=== PATIENT | male | born 1930 | race Caucasian/White ===

== ENCOUNTER 2016-10-28 20:55 | Inpatient (IN) | payer MEDICARE ==
[~2016-10-28] VITALS: Ht 162.6 cm; Wt 71.3 kg
[2016-10-28] MEDS ORDERED: ONDANSETRON PF 4 MG/2 ML VIAL. ONE (21:03)
[2016-10-28 21:15] LABS: BASO % 1 % (0-3); EOS % 2 % (0-3); HEMOGLOBIN 12.6 g/dL (13.0-17.5); LYMPH % 34 % (24-48); MEAN CORPUSCULAR HEMOGLOBIN 30 pg (25-35); MEAN CORPUSCULAR HGB CONC 34 g/dL (31-37); MEAN CORPUSCULAR VOLUME 88 fL (79-100); MONO % 14 % (0-9); NEUT % 50 % (31-73); PLATELET COUNT 185 x10^3/uL (140-400); RED BLOOD COUNT 4.23 x10^6/uL (4.30-5.70); RED CELL DISTRIBUTION WIDTH 15.3 % (11.5-14.5); WHITE BLOOD COUNT 8.9 x10^3/uL (4.0-11.0)
[2016-10-28] MEDS ORDERED: IPRATROPIUM BROMIDE 0.5 MG/2.5 ML NEBU. NEB ONE (21:15)
[2016-10-28] MEDS ORDERED: FAMOTIDINE 20 MG/2 ML VIAL IVP ONE (21:15)
[2016-10-28] MEDS ORDERED: ALBUTEROL SULFATE 2.5 MG/3 ML NEBU. NEB ONE (21:15)
[2016-10-28] MEDS ORDERED: ONDANSETRON PF 4 MG/2 ML VIAL. IV ONE (21:30)
[2016-10-28 21:32] LABS: CALCIUM 8.5 mg/dL (8.5-10.1); CREATININE 1.9 mg/dL (0.7-1.3); GFR 33.6
[2016-10-28 21:38] LABS: ALBUMIN 3.8 g/dL (3.4-5.0); ALBUMIN/GLOBULIN RATIO 1.2 (1.0-1.7); TOTAL BILIRUBIN 0.7 mg/dL (0.2-1.0); TOTAL PROTEIN 7.1 g/dL (6.4-8.2)
[2016-10-28 23:06] LABS: HCO3 ABG 23 mmol/L (21-28); PCO2 ABG 39 mmHg (35-46); PH ABG 7.38 (7.35-7.45); PO2 ABG 72 mmHg (65-108); SAT O2 ABG 93 % (92-99)
[2016-10-28] MEDS ORDERED: ONDANSETRON PF 4 MG/2 ML VIAL. IV PRN (23:45)
[2016-10-28] MEDS: CLINDAMYCIN 600MG PREMIX 50 ML IV SCH (23:46)
[2016-10-28] MEDS: IV NORMAL SALINE 1000ML BAG 1,000 ML IV SCH (23:46)
[2016-10-29 01:15] VITALS: BP 157/68
[2016-10-29 03:10] VITALS: BP 173/69
[2016-10-29 04:40] LABS: BASO % 0 % (0-3); EOS % 0 % (0-3); HEMATOCRIT 37.7 % (39.0-53.0); HEMOGLOBIN 12.6 g/dL (13.0-17.5); LYMPH # 0.3 x10^3/uL (1.0-4.8); LYMPH % 2 % (24-48); MEAN CORPUSCULAR HEMOGLOBIN 30 pg (25-35); MEAN CORPUSCULAR HGB CONC 33 g/dL (31-37); MEAN CORPUSCULAR VOLUME 89 fL (79-100); MONO % 9 % (0-9); NEUT % 89 % (31-73); PLATELET COUNT 171 x10^3/uL (140-400); RED BLOOD COUNT 4.25 x10^6/uL (4.30-5.70); RED CELL DISTRIBUTION WIDTH 14.7 % (11.5-14.5); WHITE BLOOD COUNT 13.9 x10^3/uL (4.0-11.0)
[2016-10-29 05:02] LABS: CALCIUM 8.6 mg/dL (8.5-10.1); CREATININE 1.8 mg/dL (0.7-1.3); GFR 35.8; POTASSIUM 4.3 mmol/L (3.5-5.1)
[2016-10-29] MEDS: CLINDAMYCIN 600MG PREMIX 50 ML IV SCH ×2 (06:06→14:32)
--- NOTE | 2016-10-29 06:15 | EKG ---
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
[2016-10-29 07:00] VITALS: BP 133/63
--- NOTE | 2016-10-29 07:24 | ED.ADGEN ---
Past Medical History Past Medical History: High Cholesterol, Hypertension, Hypothyroid Past Surgical History: Appendectomy, Cholecystectomy, Coronary Bypass Surgery Alcohol Use: None Drug Use: None Adult General Chief Complaint Chief Complaint: CHOKING HPI HPI Patient is a 86 year old male who had a witnessed choking episode on a Mobile cocaine. Patient was unable to clear the cookie and had an unresponsive episode which she had respiratory and cardiac arrest according to family members. Patient rolled the patient over after became unresponsive and partially dislodged food in his throat. Chest compressions were began and the patient then began to breathing. Total length of LOC was approximately 2-3 minutes. Patient initially confused on EMS arrival with intermittent coughing. Patient alert and oriented to 3 days with dry cough with mild shortness of breath. No prior choking episodes. No other acute symptoms or complaints. History obtained from patient's family members and EMS. Review of Systems Review of Systems Review symptoms as per history of present illness. All other review symptoms are negative. Current Medications Current Medications Current Medications Medications (Trade) Dose Ordered Sig/Kathryn Start Time Stop Time Status Last Admin Dose Admin Albuterol Sulfate (Ventolin Neb Soln) 5 mg 1X ONCE 10/28/16 21:15 10/28/16 21:51 DC 10/28/16 21:28 5 MG Famotidine (Pepcid) 20 mg 1X ONCE 10/28/16 21:15 10/28/16 21:51 DC 10/28/16 21:15 20 MG Ipratropium [place] (Atrovent) 0.5 mg 1X ONCE 10/28/16 21:15 10/28/16 21:51 DC 10/28/16 21:28 0.5 MG Ondansetron HCl (Zofran) 4 mg 1X ONCE 10/28/16 21:30 10/28/16 21:51 DC 10/28/16 21:26 4 MG Allergies Allergies Allergies Coded Allergies Type Severity Reaction Last Updated Verified No Known Drug Allergies 10/28/16 No Physical Exam Physical Exam Constitutional: Well developed, well nourished, no acute distress, non-toxic appearance. [] HENT: Normocephalic, atraumatic, bilateral external ears normal, oropharynx moist, no oral exudates, nose normal. [] Eyes: PERRLA, EOMI, conjunctiva normal, no discharge. [] Neck: Normal range of motion, no tenderness, supple, no stridor. [] Cardiovascular:Heart rate regular rhythm, no murmur [] Lungs & Thorax: Patient's nonlabored, and breath sounds clear, occasional dry hacking cough. Abdomen: Bowel sounds normal, soft, no tenderness, no masses, no pulsatile masses. [] Skin: Warm, dry, no erythema, no rash. [] Back: No tenderness, no CVA tenderness. [] Extremities: No tenderness, no cyanosis, no clubbing, ROM intact, no edema. [] Neurologic: Alert and oriented X 3, normal motor function, normal sensory function, no focal deficits noted. [] Psychologic: Affect normal, judgement normal, mood normal. [] Current Patient Data Vital Signs Vital Signs Date Time Temp Pulse Resp B/P (MAP) Pulse Ox O2 Delivery O2 Flow Rate FiO2 10/28/16 23:00 48 152/70 (97) 96 Room Air 10/28/16 21:09 99.2 17 99.2 Lab Values Laboratory Tests Test 10/28/16 21:02 10/28/16 21:05 White Blood Count 8.9 x10^3/uL (4.0-11.0) Red Blood Count 4.23 x10^6/uL (4.30-5.70) L Hemoglobin 12.6 g/dL (13.0-17.5) L Hematocrit 37.0 % (39.0-53.0) L Mean Corpuscular Volume 88 fL (79-100) Mean Corpuscular Hemoglobin 30 pg (25-35) Mean Corpuscular Hemoglobin Concent 34 g/dL (31-37) Red Cell Distribution Width 15.3 % (11.5-14.5) H Platelet Count 185 x10^3/uL (140-400) Neutrophils (%) (Auto) 50 % (31-73) Lymphocytes (%) (Auto) 34 % (24-48) Monocytes (%) (Auto) 14 % (0-9) H Eosinophils (%) (Auto) 2 % (0-3) Basophils (%) (Auto) 1 % (0-3) Neutrophils # (Auto) 4.4 x10^3uL (1.8-7.7) Lymphocytes # (Auto) 3.0 x10^3/uL (1.0-4.8) Monocytes # (Auto) 1.3 x10^3/uL (0.0-1.1) H Eosinophils # (Auto) 0.2 x10^3/uL (0.0-0.7) Basophils # (Auto) 0.0 x10^3/uL (0.0-0.2) Sodium Level 143 mmol/L (136-145) Potassium Level 4.0 mmol/L (3.5-5.1) Chloride Level 107 mmol/L (98-107) Carbon Dioxide Level 21 mmol/L (21-32) Anion Gap 15 (6-14) H Blood Urea Nitrogen 30 mg/dL (8-26) H Creatinine 1.9 mg/dL (0.7-1.3) H Estimated GFR (Cockcroft-Gault) 33.6 BUN/Creatinine Ratio 16 (6-20) Glucose Level 149 mg/dL (70-99) H Calcium Level 8.5 mg/dL (8.5-10.1) Total Bilirubin 0.7 mg/dL (0.2-1.0) Aspartate Amino Transferase (AST) 21 U/L (15-37) Alanine Aminotransferase (ALT) 23 U/L (16-63) Alkaline Phosphatase 72 U/L (46-116) Total Protein 7.1 g/dL (6.4-8.2) Albumin 3.8 g/dL (3.4-5.0) Albumin/Globulin Ratio 1.2 (1.0-1.7) O2 Saturation 93 % (92-99) Arterial Blood pH 7.38 (7.35-7.45) Arterial Blood pCO2 at Patient Temp 39 mmHg (35-46) Arterial Blood pO2 at Patient Temp 72 mmHg (65-108) Arterial Blood HCO3 23 mmol/L (21-28) Arterial Blood Base Excess -2 mmol/L (-3-3) FiO2 21.0 Laboratory Tests 10/28/16 21:02 Laboratory Tests 10/28/16 21:02 EKG EKG EKG: Sinus bradycardia, rate 48, right bundle branch block, nonspecific ST-T wave changes, QTC 377 [] Radiology/Procedures Radiology/Procedures [Chest x-ray: No obvious pulmonary infiltrate] Course & Med Decision Making Course & Med Decision Making Pertinent Labs and Imaging studies reviewed. (See chart for details) [Patient was witnessed with a fixation respiratory arrest and cardiac arrest successfully treated prior to ED arrival. She with chronic bradycardia, vital signs otherwise stable. Occasional cough with likely aspiration. Patient is able to drink tolerate fluids. Patient will be kept nothing by mouth empiric antibiotics given. Dr. Aguilera to admit. Jayleen Disclaimer Jayleen Disclaimer This electronic medical record was generated, in whole or in part, using a voice recognition dictation system. MARCOS ELMORE DO Oct 29, 2016 07:24
[2016-10-29 07:51] LABS: PLT ESTIMATE ADEQUATE (ADEQUATE)
--- NOTE | 2016-10-29 08:21 | RAD ---
Portable chest, 10/28/2016: History: Cardiac arrest, possible aspiration There has been a previous median sternotomy. The heart is at the upper limits of normal in size. There is calcific plaquing of the aorta. The pulmonary vascularity is normal. No pulmonary infiltrates are seen. There is no evidence of pleural fluid. IMPRESSION: 1. Borderline cardiomegaly and aortic atherosclerosis. 2. No acute abnormality is detected.
[2016-10-29 11:00] VITALS: BP 160/70
--- NOTE | 2016-10-29 11:40 | PDOC ---
PROGRESS NOTES Chief Complaint Chief Complaint 1. Respiratory Arrest 2/2 asphyxiation 2. Leukocytosis-WBC 13.9 today 3. Mild anemia-12.6 on admission 4. Elevated BUN and Cr: 30 and 1.9 on admission, likely 2/2 age 5. Hyperglycemia History of Present Illness History of Present Illness pt is doing well this morning, he is resting comfortably in bed surrounded by family, denies any complaints, cautioned to eat food in smaller bites Vitals Vitals Vital Signs Date Time Temp Pulse Resp B/P (MAP) Pulse Ox O2 Delivery O2 Flow Rate FiO2 10/29/16 11:00 98.2 56 18 160/70 (100) 94 Room Air 98.2 Physical Exam General: Alert, Oriented X3, Cooperative, No acute distress Heart: Regular rate, No murmurs Lungs: Clear, Other (no wheezes or crackles) Abdomen: Normal bowel sounds, Soft, No tenderness Extremities: No clubbing, No cyanosis Skin: No rashes, No breakdown Labs LABS Laboratory Tests Test 10/28/16 21:02 10/28/16 21:05 10/29/16 03:10 White Blood Count 8.9 x10^3/uL (4.0-11.0) 13.9 x10^3/uL (4.0-11.0) Red Blood Count 4.23 x10^6/uL (4.30-5.70) 4.25 x10^6/uL (4.30-5.70) Hemoglobin 12.6 g/dL (13.0-17.5) 12.6 g/dL (13.0-17.5) Hematocrit 37.0 % (39.0-53.0) 37.7 % (39.0-53.0) Mean Corpuscular Volume 88 fL (79-100) 89 fL (79-100) Mean Corpuscular Hemoglobin 30 pg (25-35) 30 pg (25-35) Mean Corpuscular Hemoglobin Concent 34 g/dL (31-37) 33 g/dL (31-37) Red Cell Distribution Width 15.3 % (11.5-14.5) 14.7 % (11.5-14.5) Platelet Count 185 x10^3/uL (140-400) 171 x10^3/uL (140-400) Neutrophils (%) (Auto) 50 % (31-73) 89 % (31-73) Lymphocytes (%) (Auto) 34 % (24-48) 2 % (24-48) Monocytes (%) (Auto) 14 % (0-9) 9 % (0-9) Eosinophils (%) (Auto) 2 % (0-3) 0 % (0-3) Basophils (%) (Auto) 1 % (0-3) 0 % (0-3) Neutrophils # (Auto) 4.4 x10^3uL (1.8-7.7) 12.3 x10^3uL (1.8-7.7) Lymphocytes # (Auto) 3.0 x10^3/uL (1.0-4.8) 0.3 x10^3/uL (1.0-4.8) Monocytes # (Auto) 1.3 x10^3/uL (0.0-1.1) 1.2 x10^3/uL (0.0-1.1) Eosinophils # (Auto) 0.2 x10^3/uL (0.0-0.7) 0.0 x10^3/uL (0.0-0.7) Basophils # (Auto) 0.0 x10^3/uL (0.0-0.2) 0.0 x10^3/uL (0.0-0.2) Sodium Level 143 mmol/L (136-145) 141 mmol/L (136-145) Potassium Level 4.0 mmol/L (3.5-5.1) 4.3 mmol/L (3.5-5.1) Chloride Level 107 mmol/L (98-107) 107 mmol/L (98-107) Carbon Dioxide Level 21 mmol/L (21-32) 22 mmol/L (21-32) Anion Gap 15 (6-14) 12 (6-14) Blood Urea Nitrogen 30 mg/dL (8-26) 28 mg/dL (8-26) Creatinine 1.9 mg/dL (0.7-1.3) 1.8 mg/dL (0.7-1.3) Estimated GFR (Cockcroft-Gault) 33.6 35.8 BUN/Creatinine Ratio 16 (6-20) Glucose Level 149 mg/dL (70-99) 196 mg/dL (70-99) Calcium Level 8.5 mg/dL (8.5-10.1) 8.6 mg/dL (8.5-10.1) Total Bilirubin 0.7 mg/dL (0.2-1.0) Aspartate Amino Transf (AST/SGOT) 21 U/L (15-37) Alanine Aminotransferase (ALT/SGPT) 23 U/L (16-63) Alkaline Phosphatase 72 U/L (46-116) Total Protein 7.1 g/dL (6.4-8.2) Albumin 3.8 g/dL (3.4-5.0) Albumin/Globulin Ratio 1.2 (1.0-1.7) O2 Saturation 93 % (92-99) Arterial Blood pH 7.38 (7.35-7.45) Arterial Blood pCO2 at Patient Temp 39 mmHg (35-46) Arterial Blood pO2 at Patient Temp 72 mmHg (65-108) Arterial Blood HCO3 23 mmol/L (21-28) Arterial Blood Base Excess -2 mmol/L (-3-3) FiO2 21.0 Segmented Neutrophils % 86 % (35-66) Band Neutrophils % 6 % (0-9) Lymphocytes % 4 % (24-48) Monocytes % 4 % (0-10) Platelet Estimate Adequate (ADEQUATE) Review of Systems Review of Systems denies nausea, vomiting, and PEREZ Assessment and Plan Assessmemt and Plan Assessment 1. Respiratory Arrest 2/2 asphyxiation 2. Leukocytosis-WBC 13.9 today 3. Mild anemia-12.6 on admission 4. Elevated BUN and Cr: 30 and 1.9 on admission, likely 2/2 age 5. Hyperglycemia Plan 1. Await pulmonology consult 2. Appreciate subspecialty input 3. Continue clindamycin for possible aspiration pneumonia 4. Zofran prn for nausea 5. DC fluids, pt stable hemodynamically 6. Recheck labs and vitals tomorrow if needed 7. Discussed plan of care with nursing 8. PT/OT 9. Probable discharge today if okay per pulmonology Problems: Comment Review of Relevant I have reviewed the following items yisel (where applicable) has been applied. Labs Laboratory Tests Test 10/28/16 21:02 10/28/16 21:05 10/29/16 03:10 White Blood Count 8.9 x10^3/uL (4.0-11.0) 13.9 x10^3/uL (4.0-11.0) Red Blood Count 4.23 x10^6/uL (4.30-5.70) 4.25 x10^6/uL (4.30-5.70) Hemoglobin 12.6 g/dL (13.0-17.5) 12.6 g/dL (13.0-17.5) Hematocrit 37.0 % (39.0-53.0) 37.7 % (39.0-53.0) Mean Corpuscular Volume 88 fL (79-100) 89 fL (79-100) Mean Corpuscular Hemoglobin 30 pg (25-35) 30 pg (25-35) Mean Corpuscular Hemoglobin Concent 34 g/dL (31-37) 33 g/dL (31-37) Red Cell Distribution Width 15.3 % (11.5-14.5) 14.7 % (11.5-14.5) Platelet Count 185 x10^3/uL (140-400) 171 x10^3/uL (140-400) Neutrophils (%) (Auto) 50 % (31-73) 89 % (31-73) Lymphocytes (%) (Auto) 34 % (24-48) 2 % (24-48) Monocytes (%) (Auto) 14 % (0-9) 9 % (0-9) Eosinophils (%) (Auto) 2 % (0-3) 0 % (0-3) Basophils (%) (Auto) 1 % (0-3) 0 % (0-3) Neutrophils # (Auto) 4.4 x10^3uL (1.8-7.7) 12.3 x10^3uL (1.8-7.7) Lymphocytes # (Auto) 3.0 x10^3/uL (1.0-4.8) 0.3 x10^3/uL (1.0-4.8) Monocytes # (Auto) 1.3 x10^3/uL (0.0-1.1) 1.2 x10^3/uL (0.0-1.1) Eosinophils # (Auto) 0.2 x10^3/uL (0.0-0.7) 0.0 x10^3/uL (0.0-0.7) Basophils # (Auto) 0.0 x10^3/uL (0.0-0.2) 0.0 x10^3/uL (0.0-0.2) Sodium Level 143 mmol/L (136-145) 141 mmol/L (136-145) Potassium Level 4.0 mmol/L (3.5-5.1) 4.3 mmol/L (3.5-5.1) Chloride Level 107 mmol/L (98-107) 107 mmol/L (98-107) Carbon Dioxide Level 21 mmol/L (21-32) 22 mmol/L (21-32) Anion Gap 15 (6-14) 12 (6-14) Blood Urea Nitrogen 30 mg/dL (8-26) 28 mg/dL (8-26) Creatinine 1.9 mg/dL (0.7-1.3) 1.8 mg/dL (0.7-1.3) Estimated GFR (Cockcroft-Gault) 33.6 35.8 BUN/Creatinine Ratio 16 (6-20) Glucose Level 149 mg/dL (70-99) 196 mg/dL (70-99) Calcium Level 8.5 mg/dL (8.5-10.1) 8.6 mg/dL (8.5-10.1) Total Bilirubin 0.7 mg/dL (0.2-1.0) Aspartate Amino Transf (AST/SGOT) 21 U/L (15-37) Alanine Aminotransferase (ALT/SGPT) 23 U/L (16-63) Alkaline Phosphatase 72 U/L (46-116) Total Protein 7.1 g/dL (6.4-8.2) Albumin 3.8 g/dL (3.4-5.0) Albumin/Globulin Ratio 1.2 (1.0-1.7) O2 Saturation 93 % (92-99) Arterial Blood pH 7.38 (7.35-7.45) Arterial Blood pCO2 at Patient Temp 39 mmHg (35-46) Arterial Blood pO2 at Patient Temp 72 mmHg (65-108) Arterial Blood HCO3 23 mmol/L (21-28) Arterial Blood Base Excess -2 mmol/L (-3-3) FiO2 21.0 Segmented Neutrophils % 86 % (35-66) Band Neutrophils % 6 % (0-9) Lymphocytes % 4 % (24-48) Monocytes % 4 % (0-10) Platelet Estimate Adequate (ADEQUATE) Laboratory Tests Test 10/28/16 21:02 10/28/16 21:05 10/29/16 03:10 White Blood Count 8.9 x10^3/uL (4.0-11.0) 13.9 x10^3/uL (4.0-11.0) Red Blood Count 4.23 x10^6/uL (4.30-5.70) 4.25 x10^6/uL (4.30-5.70) Hemoglobin 12.6 g/dL (13.0-17.5) 12.6 g/dL (13.0-17.5) Hematocrit 37.0 % (39.0-53.0) 37.7 % (39.0-53.0) Mean Corpuscular Volume 88 fL (79-100) 89 fL (79-100) Mean Corpuscular Hemoglobin 30 pg (25-35) 30 pg (25-35) Mean Corpuscular Hemoglobin Concent 34 g/dL (31-37) 33 g/dL (31-37) Red Cell Distribution Width 15.3 % (11.5-14.5) 14.7 % (11.5-14.5) Platelet Count 185 x10^3/uL (140-400) 171 x10^3/uL (140-400) Neutrophils (%) (Auto) 50 % (31-73) 89 % (31-73) Lymphocytes (%) (Auto) 34 % (24-48) 2 % (24-48) Monocytes (%) (Auto) 14 % (0-9) 9 % (0-9) Eosinophils (%) (Auto) 2 % (0-3) 0 % (0-3) Basophils (%) (Auto) 1 % (0-3) 0 % (0-3) Neutrophils # (Auto) 4.4 x10^3uL (1.8-7.7) 12.3 x10^3uL (1.8-7.7) Lymphocytes # (Auto) 3.0 x10^3/uL (1.0-4.8) 0.3 x10^3/uL (1.0-4.8) Monocytes # (Auto) 1.3 x10^3/uL (0.0-1.1) 1.2 x10^3/uL (0.0-1.1) Eosinophils # (Auto) 0.2 x10^3/uL (0.0-0.7) 0.0 x10^3/uL (0.0-0.7) Basophils # (Auto) 0.0 x10^3/uL (0.0-0.2) 0.0 x10^3/uL (0.0-0.2) Sodium Level 143 mmol/L (136-145) 141 mmol/L (136-145) Potassium Level 4.0 mmol/L (3.5-5.1) 4.3 mmol/L (3.5-5.1) Chloride Level 107 mmol/L (98-107) 107 mmol/L (98-107) Carbon Dioxide Level 21 mmol/L (21-32) 22 mmol/L (21-32) Anion Gap 15 (6-14) 12 (6-14) Blood Urea Nitrogen 30 mg/dL (8-26) 28 mg/dL (8-26) Creatinine 1.9 mg/dL (0.7-1.3) 1.8 mg/dL (0.7-1.3) Estimated GFR (Cockcroft-Gault) 33.6 35.8 BUN/Creatinine Ratio 16 (6-20) Glucose Level 149 mg/dL (70-99) 196 mg/dL (70-99) Calcium Level 8.5 mg/dL (8.5-10.1) 8.6 mg/dL (8.5-10.1) Total Bilirubin 0.7 mg/dL (0.2-1.0) Aspartate Amino Transf (AST/SGOT) 21 U/L (15-37) Alanine Aminotransferase (ALT/SGPT) 23 U/L (16-63) Alkaline Phosphatase 72 U/L (46-116) Total Protein 7.1 g/dL (6.4-8.2) Albumin 3.8 g/dL (3.4-5.0) Albumin/Globulin Ratio 1.2 (1.0-1.7) O2 Saturation 93 % (92-99) Arterial Blood pH 7.38 (7.35-7.45) Arterial Blood pCO2 at Patient Temp 39 mmHg (35-46) Arterial Blood pO2 at Patient Temp 72 mmHg (65-108) Arterial Blood HCO3 23 mmol/L (21-28) Arterial Blood Base Excess -2 mmol/L (-3-3) FiO2 21.0 Segmented Neutrophils % 86 % (35-66) Band Neutrophils % 6 % (0-9) Lymphocytes % 4 % (24-48) Monocytes % 4 % (0-10) Platelet Estimate Adequate (ADEQUATE) Medications Current Medications Ondansetron HCl (Zofran) 4 mg STK-MED ONCE .ROUTE ; Start 10/28/16 at 21:03; Stop 10/28/16 at 21:04; Status DC Albuterol Sulfate (Ventolin Neb Soln) 5 mg 1X ONCE NEB Last administered on 21:28; Start 10/28/16 at 21:15; Stop 10/28/16 at 21:51; Status DC Ipratropium [place] (Atrovent) 0.5 mg 1X ONCE NEB Last administered on 21:28; Start 10/28/16 at 21:15; Stop 10/28/16 at 21:51; Status DC Famotidine (Pepcid) 20 mg 1X ONCE IVP Last administered on 10/28/16 21:15; Start 10/28/16 at 21:15; Stop 10/28/16 at 21:51; Status DC Ondansetron HCl (Zofran) 4 mg 1X ONCE IV Last administered on 10/28/16 21:26; Start 10/28/16 at 21:30; Stop 10/28/16 at 21:51; Status DC Ondansetron HCl (Zofran) 4 mg PRN Q8HRS PRN IV NAUSEA/VOMITING; Start 10/28/16 at 23:45; Stop 10/29/16 at 23:44 Sodium Chloride 1,000 ml @ 75 mls/hr [id number] IV Last administered on 10/28/16 23:46; Start 10/28/16 at 23:32; Stop 10/29/16 at 23:31 Clindamycin Phosphate 50 ml @ 100 mls/hr Q8HRS IV Last administered on 06:06; Start 10/29/16 at 00:00 Vitals/I & O Vital Sign - Last 24 Hours 10/28/16 10/28/16 10/28/16 10/28/16 21:09 21:29 21:30 22:00 Temp 99.2 99.2 Pulse 47 44 46 Resp 17 B/P (MAP) 177/85 (115) 168/75 (106) 156/71 (99) Pulse Ox 96 94 95 92 O2 Delivery Room Air Room Air Room Air Room Air 10/28/16 10/28/16 10/28/16 10/29/16 22:30 23:00 23:30 00:00 Pulse 46 48 48 46 B/P (MAP) 153/69 (97) 152/70 (97) 167/77 (107) 185/76 (112) Pulse Ox 95 96 97 97 O2 Delivery Room Air Room Air Room Air Room Air 10/29/16 10/29/16 10/29/16 10/29/16 00:30 01:15 01:25 03:10 Temp 98.1 98.6 98.1 98.6 Pulse 68 50 65 Resp 20 20 B/P (MAP) 157/68 (97) 173/69 (103) Pulse Ox 97 98 96 O2 Delivery Room Air Room Air Room Air Room Air 10/29/16 10/29/16 10/29/16 07:00 08:00 11:00 Temp 97.8 98.2 97.8 98.2 Pulse 55 56 Resp 17 18 B/P (MAP) 133/63 (86) 160/70 (100) Pulse Ox 95 94 O2 Delivery Room Air Room Air Room Air Intake and Output 10/28/16 10/28/16 10/29/16 15:00 23:00 07:00 Output Total 400 ml Balance -400 ml CELSO PACHECO K III DO Oct 29, 2016 11:40
[2016-10-29] MEDS: IV NORMAL SALINE 1000ML BAG 1,000 ML IV SCH (12:52)
[2016-10-29 14:49] VITALS: BP 120/64
--- NOTE | 2016-10-29 14:57 | PDOC2 ---
CONSULT Date of Consult Date of Consult DATE: 10/29/16 TIME: 14:47 Reason for Consult Reason for Consult: acute resp distress after choking Referring Physician Referring Physician: dr gan Identification/Chief Complaint Chief Complaint soa cough passed out chocking Problems: Source Source: Patient History of Present Illness Reason for Visit: pt started chocking on cookie passed out could not breath, chest compression where initiated pt came around confused when EMS arrived now coughing non prod no resp history Past Medical History Cardiovascular: HTN, Hyperlipidemia Endocrine: Hypothyroidism Past Surgical History Past Surgical History: Appendectomy, Cholecystectomy, CABG, Other Social History No Current Medications Current Medications Current Medications Ondansetron HCl (Zofran) 4 mg STK-MED ONCE .ROUTE ; Start 10/28/16 at 21:03; Stop 10/28/16 at 21:04; Status DC Albuterol Sulfate (Ventolin Neb Soln) 5 mg 1X ONCE NEB Last administered on 21:28; Start 10/28/16 at 21:15; Stop 10/28/16 at 21:51; Status DC Ipratropium [place] (Atrovent) 0.5 mg 1X ONCE NEB Last administered on 21:28; Start 10/28/16 at 21:15; Stop 10/28/16 at 21:51; Status DC Famotidine (Pepcid) 20 mg 1X ONCE IVP Last administered on 10/28/16 21:15; Start 10/28/16 at 21:15; Stop 10/28/16 at 21:51; Status DC Ondansetron HCl (Zofran) 4 mg 1X ONCE IV Last administered on 10/28/16 21:26; Start 10/28/16 at 21:30; Stop 10/28/16 at 21:51; Status DC Ondansetron HCl (Zofran) 4 mg PRN Q8HRS PRN IV NAUSEA/VOMITING; Start 10/28/16 at 23:45; Stop 10/29/16 at 23:44 Sodium Chloride 1,000 ml @ 75 mls/hr [id number] IV Last administered on 10/28/16 23:46; Start 10/28/16 at 23:32; Stop 10/29/16 at 23:31 Clindamycin Phosphate 50 ml @ 100 mls/hr Q8HRS IV Last administered on t 14:32; Start 10/29/16 at 00:00 Allergies Allergies: Coded Allergies: No Known Drug Allergies (Unverified , 10/28/16) Physical Exam General: Alert, Oriented X3, Cooperative, No acute distress HEENT: PERRLA, Mucous membr. moist/pink Lungs: Clear to auscultation, Normal air movement Heart: Regular rate, Normal S1, Normal S2, No murmurs Abdomen: Normal bowel sounds, Soft, No tenderness, No hepatosplenomegaly, No masses Extremities: No clubbing, No cyanosis, No edema, Normal pulses, No tenderness/ swelling Skin: No rashes, No breakdown Neuro: Normal gait, Normal speech, Normal tone, Sensation intact, Reflexes 2+ Vitals VITALS Vital Signs Date Time Temp Pulse Resp B/P (MAP) Pulse Ox O2 Delivery O2 Flow Rate FiO2 10/29/16 11:00 98.2 56 18 160/70 (100) 94 Room Air 98.2 Labs Labs Laboratory Tests Test 10/28/16 21:02 10/28/16 21:05 10/29/16 03:10 White Blood Count 8.9 x10^3/uL (4.0-11.0) 13.9 x10^3/uL (4.0-11.0) Red Blood Count 4.23 x10^6/uL (4.30-5.70) 4.25 x10^6/uL (4.30-5.70) Hemoglobin 12.6 g/dL (13.0-17.5) 12.6 g/dL (13.0-17.5) Hematocrit 37.0 % (39.0-53.0) 37.7 % (39.0-53.0) Mean Corpuscular Volume 88 fL (79-100) 89 fL (79-100) Mean Corpuscular Hemoglobin 30 pg (25-35) 30 pg (25-35) Mean Corpuscular Hemoglobin Concent 34 g/dL (31-37) 33 g/dL (31-37) Red Cell Distribution Width 15.3 % (11.5-14.5) 14.7 % (11.5-14.5) Platelet Count 185 x10^3/uL (140-400) 171 x10^3/uL (140-400) Neutrophils (%) (Auto) 50 % (31-73) 89 % (31-73) Lymphocytes (%) (Auto) 34 % (24-48) 2 % (24-48) Monocytes (%) (Auto) 14 % (0-9) 9 % (0-9) Eosinophils (%) (Auto) 2 % (0-3) 0 % (0-3) Basophils (%) (Auto) 1 % (0-3) 0 % (0-3) Neutrophils # (Auto) 4.4 x10^3uL (1.8-7.7) 12.3 x10^3uL (1.8-7.7) Lymphocytes # (Auto) 3.0 x10^3/uL (1.0-4.8) 0.3 x10^3/uL (1.0-4.8) Monocytes # (Auto) 1.3 x10^3/uL (0.0-1.1) 1.2 x10^3/uL (0.0-1.1) Eosinophils # (Auto) 0.2 x10^3/uL (0.0-0.7) 0.0 x10^3/uL (0.0-0.7) Basophils # (Auto) 0.0 x10^3/uL (0.0-0.2) 0.0 x10^3/uL (0.0-0.2) Sodium Level 143 mmol/L (136-145) 141 mmol/L (136-145) Potassium Level 4.0 mmol/L (3.5-5.1) 4.3 mmol/L (3.5-5.1) Chloride Level 107 mmol/L (98-107) 107 mmol/L (98-107) Carbon Dioxide Level 21 mmol/L (21-32) 22 mmol/L (21-32) Anion Gap 15 (6-14) 12 (6-14) Blood Urea Nitrogen 30 mg/dL (8-26) 28 mg/dL (8-26) Creatinine 1.9 mg/dL (0.7-1.3) 1.8 mg/dL (0.7-1.3) Estimated GFR (Cockcroft-Gault) 33.6 35.8 BUN/Creatinine Ratio 16 (6-20) Glucose Level 149 mg/dL (70-99) 196 mg/dL (70-99) Calcium Level 8.5 mg/dL (8.5-10.1) 8.6 mg/dL (8.5-10.1) Total Bilirubin 0.7 mg/dL (0.2-1.0) Aspartate Amino Transf (AST/SGOT) 21 U/L (15-37) Alanine Aminotransferase (ALT/SGPT) 23 U/L (16-63) Alkaline Phosphatase 72 U/L (46-116) Total Protein 7.1 g/dL (6.4-8.2) Albumin 3.8 g/dL (3.4-5.0) Albumin/Globulin Ratio 1.2 (1.0-1.7) O2 Saturation 93 % (92-99) Arterial Blood pH 7.38 (7.35-7.45) Arterial Blood pCO2 at Patient Temp 39 mmHg (35-46) Arterial Blood pO2 at Patient Temp 72 mmHg (65-108) Arterial Blood HCO3 23 mmol/L (21-28) Arterial Blood Base Excess -2 mmol/L (-3-3) FiO2 21.0 Segmented Neutrophils % 86 % (35-66) Band Neutrophils % 6 % (0-9) Lymphocytes % 4 % (24-48) Monocytes % 4 % (0-10) Platelet Estimate Adequate (ADEQUATE) Laboratory Tests Test 10/28/16 21:02 10/28/16 21:05 10/29/16 03:10 White Blood Count 8.9 x10^3/uL (4.0-11.0) 13.9 x10^3/uL (4.0-11.0) Red Blood Count 4.23 x10^6/uL (4.30-5.70) 4.25 x10^6/uL (4.30-5.70) Hemoglobin 12.6 g/dL (13.0-17.5) 12.6 g/dL (13.0-17.5) Hematocrit 37.0 % (39.0-53.0) 37.7 % (39.0-53.0) Mean Corpuscular Volume 88 fL (79-100) 89 fL (79-100) Mean Corpuscular Hemoglobin 30 pg (25-35) 30 pg (25-35) Mean Corpuscular Hemoglobin Concent 34 g/dL (31-37) 33 g/dL (31-37) Red Cell Distribution Width 15.3 % (11.5-14.5) 14.7 % (11.5-14.5) Platelet Count 185 x10^3/uL (140-400) 171 x10^3/uL (140-400) Neutrophils (%) (Auto) 50 % (31-73) 89 % (31-73) Lymphocytes (%) (Auto) 34 % (24-48) 2 % (24-48) Monocytes (%) (Auto) 14 % (0-9) 9 % (0-9) Eosinophils (%) (Auto) 2 % (0-3) 0 % (0-3) Basophils (%) (Auto) 1 % (0-3) 0 % (0-3) Neutrophils # (Auto) 4.4 x10^3uL (1.8-7.7) 12.3 x10^3uL (1.8-7.7) Lymphocytes # (Auto) 3.0 x10^3/uL (1.0-4.8) 0.3 x10^3/uL (1.0-4.8) Monocytes # (Auto) 1.3 x10^3/uL (0.0-1.1) 1.2 x10^3/uL (0.0-1.1) Eosinophils # (Auto) 0.2 x10^3/uL (0.0-0.7) 0.0 x10^3/uL (0.0-0.7) Basophils # (Auto) 0.0 x10^3/uL (0.0-0.2) 0.0 x10^3/uL (0.0-0.2) Sodium Level 143 mmol/L (136-145) 141 mmol/L (136-145) Potassium Level 4.0 mmol/L (3.5-5.1) 4.3 mmol/L (3.5-5.1) Chloride Level 107 mmol/L (98-107) 107 mmol/L (98-107) Carbon Dioxide Level 21 mmol/L (21-32) 22 mmol/L (21-32) Anion Gap 15 (6-14) 12 (6-14) Blood Urea Nitrogen 30 mg/dL (8-26) 28 mg/dL (8-26) Creatinine 1.9 mg/dL (0.7-1.3) 1.8 mg/dL (0.7-1.3) Estimated GFR (Cockcroft-Gault) 33.6 35.8 BUN/Creatinine Ratio 16 (6-20) Glucose Level 149 mg/dL (70-99) 196 mg/dL (70-99) Calcium Level 8.5 mg/dL (8.5-10.1) 8.6 mg/dL (8.5-10.1) Total Bilirubin 0.7 mg/dL (0.2-1.0) Aspartate Amino Transf (AST/SGOT) 21 U/L (15-37) Alanine Aminotransferase (ALT/SGPT) 23 U/L (16-63) Alkaline Phosphatase 72 U/L (46-116) Total Protein 7.1 g/dL (6.4-8.2) Albumin 3.8 g/dL (3.4-5.0) Albumin/Globulin Ratio 1.2 (1.0-1.7) O2 Saturation 93 % (92-99) Arterial Blood pH 7.38 (7.35-7.45) Arterial Blood pCO2 at Patient Temp 39 mmHg (35-46) Arterial Blood pO2 at Patient Temp 72 mmHg (65-108) Arterial Blood HCO3 23 mmol/L (21-28) Arterial Blood Base Excess -2 mmol/L (-3-3) FiO2 21.0 Segmented Neutrophils % 86 % (35-66) Band Neutrophils % 6 % (0-9) Lymphocytes % 4 % (24-48) Monocytes % 4 % (0-10) Platelet Estimate Adequate (ADEQUATE) Assessment/Plan Assessment/Plan ACUTE RESP DISTRESS SEC TO CHOKING ON COOKIES S/P CHEST COMPRESSION CABG HTN COUGH SEC TO NUMBER ONE PLAN OK TO D/C FOLLOW UP WITH ME IN 6 WEEKS IF COUGH PERSIST SPOKE WITH DAUGHTER UGO AHN MD Oct 29, 2016 14:57
--- NOTE | 2016-10-29 15:37 | PDOC1 ---
History and Physical Date of Admission Date of Admission DATE: 10/29/16 TIME: 15:35 Identification/Chief Complaint Chief Complaint choked on a cookie Problems: History of Present Illness History of Present Illness Elderly male choked on a oatmeal and raisin cookie. Passed out. Friend started CPR Admitted for abs. This am he was seen and examined. At baseline A&O. VSS Plan to dc Total time 31 minutes Past Medical History Cardiovascular: HTN, Hyperlipidemia Endocrine: Hypothyroidism Past Surgical History Past Surgical History: Appendectomy, Cholecystectomy, CABG, Other Social History Smoke: No Current Medications Current Medications Current Medications Ondansetron HCl (Zofran) 4 mg STK-MED ONCE .ROUTE ; Start 10/28/16 at 21:03; Stop 10/28/16 at 21:04; Status DC Albuterol Sulfate (Ventolin Neb Soln) 5 mg 1X ONCE NEB Last administered on 21:28; Start 10/28/16 at 21:15; Stop 10/28/16 at 21:51; Status DC Ipratropium [place] (Atrovent) 0.5 mg 1X ONCE NEB Last administered on 21:28; Start 10/28/16 at 21:15; Stop 10/28/16 at 21:51; Status DC Famotidine (Pepcid) 20 mg 1X ONCE IVP Last administered on 10/28/16 21:15; Start 10/28/16 at 21:15; Stop 10/28/16 at 21:51; Status DC Ondansetron HCl (Zofran) 4 mg 1X ONCE IV Last administered on 10/28/16 21:26; Start 10/28/16 at 21:30; Stop 10/28/16 at 21:51; Status DC Ondansetron HCl (Zofran) 4 mg PRN Q8HRS PRN IV NAUSEA/VOMITING; Start 10/28/16 at 23:45; Stop 10/29/16 at 23:44 Sodium Chloride 1,000 ml @ 75 mls/hr [id number] IV Last administered on 10/28/16 23:46; Start 10/28/16 at 23:32; Stop 10/29/16 at 23:31 Clindamycin Phosphate 50 ml @ 100 mls/hr Q8HRS IV Last administered on 7/7/ 17at 14:32; Start 10/29/16 at 00:00 Active Scripts Active No Active Prescriptions or Reported Medications Allergies Allergies: Coded Allergies: No Known Drug Allergies (Unverified , 10/28/16) Vitals Vitals Vital Signs Date Time Temp Pulse Resp B/P (MAP) Pulse Ox O2 Delivery O2 Flow Rate FiO2 10/29/16 14:49 97.6 47 18 120/64 (82) 95 Room Air 97.6 Labs Labs Laboratory Tests Test 10/28/16 21:02 10/28/16 21:05 10/29/16 03:10 White Blood Count 8.9 x10^3/uL (4.0-11.0) 13.9 x10^3/uL (4.0-11.0) Red Blood Count 4.23 x10^6/uL (4.30-5.70) 4.25 x10^6/uL (4.30-5.70) Hemoglobin 12.6 g/dL (13.0-17.5) 12.6 g/dL (13.0-17.5) Hematocrit 37.0 % (39.0-53.0) 37.7 % (39.0-53.0) Mean Corpuscular Volume 88 fL (79-100) 89 fL (79-100) Mean Corpuscular Hemoglobin 30 pg (25-35) 30 pg (25-35) Mean Corpuscular Hemoglobin Concent 34 g/dL (31-37) 33 g/dL (31-37) Red Cell Distribution Width 15.3 % (11.5-14.5) 14.7 % (11.5-14.5) Platelet Count 185 x10^3/uL (140-400) 171 x10^3/uL (140-400) Neutrophils (%) (Auto) 50 % (31-73) 89 % (31-73) Lymphocytes (%) (Auto) 34 % (24-48) 2 % (24-48) Monocytes (%) (Auto) 14 % (0-9) 9 % (0-9) Eosinophils (%) (Auto) 2 % (0-3) 0 % (0-3) Basophils (%) (Auto) 1 % (0-3) 0 % (0-3) Neutrophils # (Auto) 4.4 x10^3uL (1.8-7.7) 12.3 x10^3uL (1.8-7.7) Lymphocytes # (Auto) 3.0 x10^3/uL (1.0-4.8) 0.3 x10^3/uL (1.0-4.8) Monocytes # (Auto) 1.3 x10^3/uL (0.0-1.1) 1.2 x10^3/uL (0.0-1.1) Eosinophils # (Auto) 0.2 x10^3/uL (0.0-0.7) 0.0 x10^3/uL (0.0-0.7) Basophils # (Auto) 0.0 x10^3/uL (0.0-0.2) 0.0 x10^3/uL (0.0-0.2) Sodium Level 143 mmol/L (136-145) 141 mmol/L (136-145) Potassium Level 4.0 mmol/L (3.5-5.1) 4.3 mmol/L (3.5-5.1) Chloride Level 107 mmol/L (98-107) 107 mmol/L (98-107) Carbon Dioxide Level 21 mmol/L (21-32) 22 mmol/L (21-32) Anion Gap 15 (6-14) 12 (6-14) Blood Urea Nitrogen 30 mg/dL (8-26) 28 mg/dL (8-26) Creatinine 1.9 mg/dL (0.7-1.3) 1.8 mg/dL (0.7-1.3) Estimated GFR (Cockcroft-Gault) 33.6 35.8 BUN/Creatinine Ratio 16 (6-20) Glucose Level 149 mg/dL (70-99) 196 mg/dL (70-99) Calcium Level 8.5 mg/dL (8.5-10.1) 8.6 mg/dL (8.5-10.1) Total Bilirubin 0.7 mg/dL (0.2-1.0) Aspartate Amino Transf (AST/SGOT) 21 U/L (15-37) Alanine Aminotransferase (ALT/SGPT) 23 U/L (16-63) Alkaline Phosphatase 72 U/L (46-116) Total Protein 7.1 g/dL (6.4-8.2) Albumin 3.8 g/dL (3.4-5.0) Albumin/Globulin Ratio 1.2 (1.0-1.7) O2 Saturation 93 % (92-99) Arterial Blood pH 7.38 (7.35-7.45) Arterial Blood pCO2 at Patient Temp 39 mmHg (35-46) Arterial Blood pO2 at Patient Temp 72 mmHg (65-108) Arterial Blood HCO3 23 mmol/L (21-28) Arterial Blood Base Excess -2 mmol/L (-3-3) FiO2 21.0 Segmented Neutrophils % 86 % (35-66) Band Neutrophils % 6 % (0-9) Lymphocytes % 4 % (24-48) Monocytes % 4 % (0-10) Platelet Estimate Adequate (ADEQUATE) Laboratory Tests Test 10/28/16 21:02 10/28/16 21:05 10/29/16 03:10 White Blood Count 8.9 x10^3/uL (4.0-11.0) 13.9 x10^3/uL (4.0-11.0) Red Blood Count 4.23 x10^6/uL (4.30-5.70) 4.25 x10^6/uL (4.30-5.70) Hemoglobin 12.6 g/dL (13.0-17.5) 12.6 g/dL (13.0-17.5) Hematocrit 37.0 % (39.0-53.0) 37.7 % (39.0-53.0) Mean Corpuscular Volume 88 fL (79-100) 89 fL (79-100) Mean Corpuscular Hemoglobin 30 pg (25-35) 30 pg (25-35) Mean Corpuscular Hemoglobin Concent 34 g/dL (31-37) 33 g/dL (31-37) Red Cell Distribution Width 15.3 % (11.5-14.5) 14.7 % (11.5-14.5) Platelet Count 185 x10^3/uL (140-400) 171 x10^3/uL (140-400) Neutrophils (%) (Auto) 50 % (31-73) 89 % (31-73) Lymphocytes (%) (Auto) 34 % (24-48) 2 % (24-48) Monocytes (%) (Auto) 14 % (0-9) 9 % (0-9) Eosinophils (%) (Auto) 2 % (0-3) 0 % (0-3) Basophils (%) (Auto) 1 % (0-3) 0 % (0-3) Neutrophils # (Auto) 4.4 x10^3uL (1.8-7.7) 12.3 x10^3uL (1.8-7.7) Lymphocytes # (Auto) 3.0 x10^3/uL (1.0-4.8) 0.3 x10^3/uL (1.0-4.8) Monocytes # (Auto) 1.3 x10^3/uL (0.0-1.1) 1.2 x10^3/uL (0.0-1.1) Eosinophils # (Auto) 0.2 x10^3/uL (0.0-0.7) 0.0 x10^3/uL (0.0-0.7) Basophils # (Auto) 0.0 x10^3/uL (0.0-0.2) 0.0 x10^3/uL (0.0-0.2) Sodium Level 143 mmol/L (136-145) 141 mmol/L (136-145) Potassium Level 4.0 mmol/L (3.5-5.1) 4.3 mmol/L (3.5-5.1) Chloride Level 107 mmol/L (98-107) 107 mmol/L (98-107) Carbon Dioxide Level 21 mmol/L (21-32) 22 mmol/L (21-32) Anion Gap 15 (6-14) 12 (6-14) Blood Urea Nitrogen 30 mg/dL (8-26) 28 mg/dL (8-26) Creatinine 1.9 mg/dL (0.7-1.3) 1.8 mg/dL (0.7-1.3) Estimated GFR (Cockcroft-Gault) 33.6 35.8 BUN/Creatinine Ratio 16 (6-20) Glucose Level 149 mg/dL (70-99) 196 mg/dL (70-99) Calcium Level 8.5 mg/dL (8.5-10.1) 8.6 mg/dL (8.5-10.1) Total Bilirubin 0.7 mg/dL (0.2-1.0) Aspartate Amino Transf (AST/SGOT) 21 U/L (15-37) Alanine Aminotransferase (ALT/SGPT) 23 U/L (16-63) Alkaline Phosphatase 72 U/L (46-116) Total Protein 7.1 g/dL (6.4-8.2) Albumin 3.8 g/dL (3.4-5.0) Albumin/Globulin Ratio 1.2 (1.0-1.7) O2 Saturation 93 % (92-99) Arterial Blood pH 7.38 (7.35-7.45) Arterial Blood pCO2 at Patient Temp 39 mmHg (35-46) Arterial Blood pO2 at Patient Temp 72 mmHg (65-108) Arterial Blood HCO3 23 mmol/L (21-28) Arterial Blood Base Excess -2 mmol/L (-3-3) FiO2 21.0 Segmented Neutrophils % 86 % (35-66) Band Neutrophils % 6 % (0-9) Lymphocytes % 4 % (24-48) Monocytes % 4 % (0-10) Platelet Estimate Adequate (ADEQUATE) VTE Prophylaxis Ordered VTE Prophylaxis Devices: Yes VTE Pharmacological Prophylaxi: Yes CELSO PACHECO III DO Oct 29, 2016 15:37
== END 2016-10-29 15:36 | disposition home or self-care (01) | DRG 177 ==
LOC: ER 20:55 → 2 NORTH 23:00
PROVIDERS: ADMIT Internal Medicine; ATTEND Internal Medicine
DX: J69.0 Pneumonitis due to inhalation of food and vomit (principal); R09.2 Respiratory arrest; T17.920A Food in respiratory tract, part unspecified causing asphyxiation, initial encounter; X58.XXXA Exposure to other specified factors, initial encounter; D64.9 Anemia, unspecified; E03.9 Hypothyroidism, unspecified; D72.829 Elevated white blood cell count, unspecified; E78.00 Pure hypercholesterolemia, unspecified; E78.5 Hyperlipidemia, unspecified; R73.9 Hyperglycemia, unspecified; I70.0 Atherosclerosis of aorta; I11.9 Hypertensive heart disease without heart failure; R00.1 Bradycardia, unspecified; Z90.49 Acquired absence of other specified parts of digestive tract; Y93.89 Activity, other specified; Y92.89 Other specified places as the place of occurrence of the external cause; Y99.8 Other external cause status; Z95.1 Presence of aortocoronary bypass graft
CPT/HCPCS: 36415; 36600; 71010; 80048; 80053; 82805; 85007; 85027; 93005; 94250; 94640; 96374; 96375; J2405; J3490; J7030; J7644; S0028; 99285-25

== ENCOUNTER 2017-06-12 08:29 | Emergency (ER) | payer MEDICARE ==
[2017-06-12 09:15] LABS: BILIRUBIN,URINE NEGATIVE (NEG); CLARITY,URINE CLEAR; COLOR,URINE YELLOW; GLUCOSE,URINE NEGATIVE (NEG); NITRITE,URINE NEGATIVE (NEG); PROTEIN,URINE NEGATIVE (NEG-TRACE); UROBILINOGEN,URINE 0.2 mg/dL (0.2 mg/dL)
[2017-06-12 09:23] LABS: HYALINE CASTS, URINE FEW /HPF; RBC,URINE OCC /HPF (0-2); SQUAMOUS EPITHELIAL CELL,UR FEW /LPF
[2017-06-12 09:24] LABS: BACTERIA,URINE MODERATE /HPF (0-FEW)
[2017-06-12 09:27] LABS: ADD MAN DIFF? NO
[2017-06-12 09:30] LABS: BASO % 0 % (0-3); EOS # 0.2 x10^3/uL (0.0-0.7); EOS % 3 % (0-3); HEMATOCRIT 36.9 % (39.0-53.0); HEMOGLOBIN 12.6 g/dL (13.0-17.5); LYMPH # 1.2 x10^3/uL (1.0-4.8); LYMPH % 16 % (24-48); MEAN CORPUSCULAR HEMOGLOBIN 30 pg (25-35); MEAN CORPUSCULAR HGB CONC 34 g/dL (31-37); MEAN CORPUSCULAR VOLUME 89 fL (79-100); MONO # 0.9 x10^3/uL (0.0-1.1); MONO % 12 % (0-9); NEUT # 5.1 x10^3uL (1.8-7.7); NEUT % 69 % (31-73); PLATELET COUNT 206 x10^3/uL (140-400); RED BLOOD COUNT 4.15 x10^6/uL (4.30-5.70); WHITE BLOOD COUNT 7.5 x10^3/uL (4.0-11.0)
[2017-06-12 09:40] LABS: ANION GAP 9 (6-14); BLOOD UREA NITROGEN 29 mg/dL (8-26); CALCIUM 8.5 mg/dL (8.5-10.1); CARBON DIOXIDE 25 mmol/L (21-32); CHLORIDE 105 mmol/L (98-107); CREATININE 1.8 mg/dL (0.7-1.3); GFR 35.7; GLUCOSE 117 mg/dL (70-99); POTASSIUM 4.9 mmol/L (3.5-5.1); SODIUM 139 mmol/L (136-145)
[2017-06-12] MEDS: IV NORMAL SALINE 1000ML BAG 1,000 ML IV ×2 (09:43)
[2017-06-12 09:54] LABS: CKMB MASS 0.7 ng/mL (0.0-3.6); CREATINE KINASE 39 U/L (39-308)
[2017-06-12 10:06] LABS: TROPONINI < 0.017 ng/mL (0.000-0.055)
[2017-06-12 10:48] LABS: ALBUMIN 3.6 g/dL (3.4-5.0); ALK PHOS 64 U/L (46-116); ALT (SGPT) 14 U/L (16-63); AST (SGOT) 13 U/L (15-37); DIRECT BILIRUBIN 0.2 mg/dL (0.0-0.2); TOTAL BILIRUBIN 0.6 mg/dL (0.2-1.0); TOTAL PROTEIN 6.7 g/dL (6.4-8.2)
== END 2017-06-12 12:35 | disposition home or self-care (01) ==
LOC: ER 08:29
DX: R10.9 Unspecified abdominal pain (principal); E78.00 Pure hypercholesterolemia, unspecified; I10 Essential (primary) hypertension; E03.9 Hypothyroidism, unspecified; Z90.49 Acquired absence of other specified parts of digestive tract; Z95.1 Presence of aortocoronary bypass graft
CPT/HCPCS: 36415; 74176; 80048; 80076; 81001; 82553; 84484; 85025; 87086; 87186; 93005; 96361; 96365; 99285-25; J0690; J7030